=== PATIENT | female | born 1965 | race Caucasian/White ===

== ENCOUNTER 2016-10-20 19:29 | Emergency (ER) | payer MEDICAID ==
[~2016-10-20] VITALS: Ht 165.1 cm; Wt 75.0 kg
[~2016-10-20 19:29] MED LIST: CEPH500C PO; GABA600T PO; HYDR-3516 PO; LISI10TA3 PO; MORP1CAP82 PO; OMEP20TA PO
[2016-10-20] MEDS ORDERED: LORazepam 2 MG/ML VIAL IV PUSH ONE (19:45)
--- NOTE | 2016-10-20 19:46 | PD ---
HPI Chief Complaint: closed head injury Time Seen by Provider: 19:34 Travel History International Travel<30 days: No Contact w/Intl Traveler<30days: No History of Present Illness HPI This is a 51-year-old female who presents to the emergency department having reportedly had a fall from standing hitting her head. Patient was drinking alcohol. Patient is unable to provide any history but did awaken and talk to EMS briefly. She does have a history of anxiety. History is very limited as the patient is not appropriately responding to questions. PFSH Past Medical History Hx Anticoagulant Therapy: No Cardiovascular Problems: No Chemotherapy: No Cerebrovascular Accident: No Diabetes: No Respiratory: No Social History Alcohol Use: Yes Tobacco Use: Yes Substance Use: No Allergies-Medications (Allergen,Severity, Reaction): Coded Allergies: No Known Allergies (Unverified , 10/20/16) Reported Meds & Prescriptions Reported Meds & Active Scripts Active Reported Embeda (Morphine-Naltrexone ER) 60-2.4 Mg Caper 1 Cap PO BID Hydrocodone-Acetaminophen 5-325 mg Tab 1 Tab PO Q6H PRN Gabapentin 600 Mg Tab 600 Mg PO BID Omeprazole 20 Mg Tab 20 Mg PO DAILY Lisinopril 10 Mg Tab 10 Mg PO DAILY Review of Systems ROS Limitations: Intoxication Physical Exam Narrative GENERAL: Disheveled SKIN: Warm and dry. HEAD: Atraumatic. Normocephalic. EYES: Pupils equal and round. No injection or drainage. ENT: Moist mucous membranes NECK: Trachea midline. Cervical collar in place. CARDIOVASCULAR: Regular rate and rhythm. No murmur appreciated. RESPIRATORY: Hyperventilating GASTROINTESTINAL: Abdomen soft, non-tender, nondistended. MUSCULOSKELETAL: No obvious deformities. NEUROLOGICAL: Awake and alert. No obvious cranial nerve deficits. Moving all extremities. PSYCHIATRIC: Tearful, not answering questions appropriately Data Data Last Documented VS Vital Signs Date Time Temp Pulse Resp B/P Pulse Ox O2 Delivery O2 Flow Rate FiO2 10/20/16 19:59 98.9 98 22 134/[address] Brain W/O Iv Contrast(Rout) (10/20/16 ) Ct Cerv Spine W/O Contrast (10/20/16 ) ^ Insert Iv (10/20/16 19:44) Alcohol (Ethanol) (10/20/16 19:44) Complete Blood Count With Diff (10/20/16 19:44) Basic Metabolic Panel (Bmp) (10/20/16 19:44) Lorazepam Inj (Ativan Inj) (10/20/16 19:45) Potassium Chloride (Kcl) (10/20/16 21:30) Labs Laboratory Tests Test 10/20/16 20:33 White Blood Count 8.4 TH/MM3 Red Blood Count 4.63 MIL/MM3 Hemoglobin 15.2 GM/DL Hematocrit 44.2 % Mean Corpuscular Volume 95.5 FL Mean Corpuscular Hemoglobin 32.9 PG Mean Corpuscular Hemoglobin 34.4 % Concent Red Cell Distribution Width 12.6 % Platelet Count 248 TH/MM3 Mean Platelet Volume 7.8 FL Neutrophils (%) (Auto) 41.7 % Lymphocytes (%) (Auto) 47.7 % Monocytes (%) (Auto) 6.7 % Eosinophils (%) (Auto) 3.1 % Basophils (%) (Auto) 0.8 % Neutrophils # (Auto) 3.5 TH/MM3 Lymphocytes # (Auto) 4.0 TH/MM3 Monocytes # (Auto) 0.6 TH/MM3 Eosinophils # (Auto) 0.3 TH/MM3 Basophils # (Auto) 0.1 TH/MM3 CBC Comment DIFF FINAL Differential Comment Sodium Level 146 MEQ/L Potassium Level 3.0 MEQ/L Chloride Level 112 MEQ/L Carbon Dioxide Level 20.1 MEQ/L Anion Gap 14 MEQ/L Blood Urea Nitrogen 6 MG/DL Creatinine 0.77 MG/DL Estimat Glomerular Filtration 78 ML/MIN Rate Random Glucose 114 MG/DL Calcium Level 8.3 MG/DL Ethyl Alcohol Level 119 MG/DL MDM Medical Decision Making Medical Screen Exam Complete: Yes Emergency Medical Condition: Yes Interpretation(s) Afebrile, tachycardic, normotensive Last [address] 10/20/16 0000 Signed Impressions: Service Date/Time: Thursday, October 20, 2016 19:53 - CONCLUSION: No acute intracranial abnormality. Francis Villalobos MD Cervical Spine CT 10/20/16 0000 Signed Impressions: Service Date/Time: Thursday, October 20, 2016 19:53 - CONCLUSION: Intact cervical spine. Francis Villalobos MD Differential Diagnosis Intracranial hemorrhage, cervical spine fracture, concussion, panic attack, alcohol intoxication Narrative Course This is a 51-year-old female who presents to the emergency department intoxicated having hit her head on a car when she fell. Patient was having a panic attack when she arrived, hyperventilating and behaving bizarrely. Now she is awake and alert reporting that she has a headache and back pain. She says she has chronic back pain and usually sees pain management for her insurance doesn't cover it anymore. I offered her Tylenol or Motrin for her back pain. Given her alcohol level was elevated I didn't think opiates were appropriate. She told me I can "keep it". She was placed on a monitor on arrival and an IV was established. Labs demonstrate an alcohol level of 119. CTs were reassuring. Patient assures me that she has a family member that can drive her home. Diagnosis Primary Impression: Acute alcohol intoxication Qualified Code: F10.120 - Acute alcohol intoxication, uncomplicated Additional Impression: Concussion Qualified Code: S06.0X9A - Concussion, with LOC of unspecified duration, initial encounter Patient Instructions: General Instructions Additional Instructions: Follow up with Isrrael Valencia in regards to psychiatric or substance related issues at: [address] [place] [address] Med/Other Pt SpecificInfo: No Change to Meds Disposition: 01 DISCHARGE HOME Condition: Stable Akila Monsivais MD Oct 20, 2016 19:46
[2016-10-20 19:59] VITALS: BP 134/90; PULSE 98; RESP 22; TEMP 98.9; O2SAT 93
--- NOTE | 2016-10-20 20:20 | RADRPT ---
EXAM DATE/TIME: 10/20/2016 19:53 [facility] COMPARISON: No previous studies available for comparison. INDICATIONS : Syncopal episode with fall. RADIATION DOSE: 37.90 CTDIvol (mGy) MEDICAL HISTORY : None SURGICAL HISTORY : None. ENCOUNTER: Initial ACUITY: 1 day PAIN SCALE: 8/10 LOCATION: cranial TECHNIQUE: Multiple contiguous axial images were obtained of the head. Using automated exposure control and adj ustment of the mA and/or kV according to patient size, radiation dose was kept as low as reasonably a chievable to obtain optimal diagnostic quality images. FINDINGS: CEREBRUM: The ventricles are normal for age. No evidence of midline shift, mass lesion, hemorrhage or acute in farction. No extra-axial fluid collections are seen. POSTERIOR FOSSA: The cerebellum and brainstem are intact. The 4th ventricle is midline. The cerebellopontine angle i s unremarkable. EXTRACRANIAL: The visualized portion of the orbits is intact. SKULL: The calvaria is intact. No evidence of skull fracture. CONCLUSION: No acute intracranial abnormality. Francis Villalobos MD on October 20, 2016 at 20:18 Board Certified Radiologist. This report was verified electronically.
[2016-10-20 20:49] LABS: AUTOMATED NEUTROPHIL # 3.5 TH/MM3 (1.8-7.7); BASOPHIL # 0.1 TH/MM3 (0-0.2); BASOPHIL % 0.8 % (0.0-2.0); EOSINOPHIL # 0.3 TH/MM3 (0-0.4); EOSINOPHIL % 3.1 % (0.0-4.0); HEMATOCRIT 44.2 % (35.0-46.0); HEMO FLAGS DIFF FINAL; LYMPH % 47.7 % (9.0-44.0); MEAN CELL VOLUME 95.5 FL (80.0-100.0); MEAN CORPUSCULAR HEMOGLOBIN 32.9 PG (27.0-34.0); MEAN CORPUSCULAR HGB CONC 34.4 % (32.0-36.0); MONO % 6.7 % (0.0-8.0); NEUT % 41.7 % (16.0-70.0); PLATELET COUNT 248 TH/MM3 (150-450); RED BLOOD COUNT 4.63 MIL/MM3 (4.00-5.30); RED CELL DISTRIBUTION WIDTH 12.6 % (11.6-17.2); WHITE BLOOD COUNT 8.4 TH/MM3 (4.0-11.0)
--- NOTE | 2016-10-20 20:52 | RADRPT ---
EXAM DATE/TIME: 10/20/2016 19:53 [facility] COMPARISON: No previous studies available for comparison. INDICATIONS : Syncopal episode with fall. RADIATION DOSE: 22.90 CTDIvol (mGy) MEDICAL HISTORY : None SURGICAL HISTORY : None. ENCOUNTER: Initial ACUITY: 1 day PAIN SCALE: 5/10 LOCATION: neck TECHNIQUE: Volumetric scanning of the cervical spine was performed. Multiplanar reconstructions in the sagittal, coronal and oblique axial planes were performed. Using automated exposure control and adjustment o f the mA and/or kV according to patient size, radiation dose was kept as low as reasonably achievable to obtain optimal diagnostic quality images. FINDINGS: VERTEBRAE: Normal vertebral body height. ALIGNMENT: No evidence of subluxation. C2-C3: The bony spinal canal is normal in size. No evidence of disc bulge or herniation. The neural forami na are bilaterally patent. C3-C4: The bony spinal canal is normal in size. No evidence of disc bulge or herniation. The neural forami na are bilaterally patent. C4-C5: The bony spinal canal is normal in size. No evidence of disc bulge or herniation. The neural forami na are bilaterally patent. C5-C6: The bony spinal canal is normal in size. No evidence of disc bulge or herniation. The neural forami na are bilaterally patent. C6-C7: The bony spinal canal is normal in size. No evidence of disc bulge or herniation. The neural forami na are bilaterally patent. C7-T1: The bony spinal canal is normal in size. No evidence of disc bulge or herniation. The neural forami na are bilaterally patent. CONCLUSION: Intact cervical spine. Francis Villalobos MD on October 20, 2016 at 20:51 Board Certified Radiologist. This report was verified electronically.
[2016-10-20 21:12] LABS: BICARBONATE 20.1 MEQ/L (21.0-32.0)
[2016-10-20] MEDS ORDERED: POTASSIUM CHLORIDE 10 MEQ CONTROLLED RELEASE TAB PO ONE (21:30)
== END 2016-10-20 21:36 | disposition home or self-care (01) ==
LOC: NEPC 19:29
DX: S06.0X9A Concussion with loss of consciousness of unspecified duration, initial encounter (principal); F10.120 Alcohol abuse with intoxication, uncomplicated; Z72.0 Tobacco use; W19.XXXA Unspecified fall, initial encounter; Y99.8 Other external cause status
CPT/HCPCS: 70450; 72125; 80048; 80307; 85025; 96374; 99284; J2060

== ENCOUNTER 2017-07-06 21:13 | Emergency (ER) | payer MEDICAID ==
[~2017-07-06] VITALS: Ht 162.6 cm; Wt 70.0 kg
[~2017-07-06 21:13] MED LIST changes: -CEPH500C PO; -OMEP20TA PO; +OMEP20TA93 PO
[2017-07-06 21:14] VITALS: BP 118/75; PULSE 116; RESP 18; TEMP 98.2; O2SAT 98
--- NOTE | 2017-07-06 21:36 | PD ---
HPI Chief Complaint: Injury Time Seen by Provider: 21:27 Travel History International Travel<30 days: No Contact w/Intl Traveler<30days: No Traveled to known affect area: No History of Present Illness HPI 52-year-old female presents to the emergency Department with complaint of right ankle pain after stepping off a curb and twisting her ankle. Reports swelling and pain to the lateral aspect. Has not been ambulatory on the affected extremity. Denies paresthesias, loss of sensation to the affected extremity. Rates pain 8/10. Describes as a throbbing sensation. Worse with movement and palpation. Has not taken any medications or tried any treatments to alleviate her symptoms. No known allergies. History of hypertension. Has no other medical complaints. Dr. Kemp is primary care provider. No other modifying factors or associated signs and symptoms. PFSH Past Medical History Medical History: Denies Significant Hx Hx Anticoagulant Therapy: No Cardiovascular Problems: No Chemotherapy: No Cerebrovascular Accident: No Diabetes: No Respiratory: No ?: Not Tubal Ligation: Yes Past Surgical History Section: Yes (X1) Other Surgery: Yes (LEFT LEG, LEFT HIP X 2, RIGHT WRIST, LEFT SHOULDER, RT KNEE ) Social History Alcohol Use: Yes (OCCASIONALLY) Tobacco Use: Yes (1 PPD) Substance Use: No Allergies-Medications (Allergen,Severity, Reaction): Coded Allergies: No Known Allergies (Unverified , 10/20/16) Reported Meds & Prescriptions Reported Meds & Active Scripts Active Reported Embeda (Morphine-Naltrexone ER) 60-2.4 Mg Caper 1 Cap PO BID Hydrocodone-Acetaminophen 5-325 mg Tab 1 Tab PO Q6H PRN Gabapentin 600 Mg Tab 600 Mg PO BID Omeprazole 20 Mg Tab 20 Mg PO DAILY Lisinopril 10 Mg Tab 10 Mg PO DAILY Review of Systems Except as stated in HPI: all other systems reviewed are Neg Physical Exam Narrative GENERAL: Well-nourished, well-developed female patient, in no acute distress SKIN: Warm and dry. HEAD: Atraumatic. Normocephalic. EYES: Pupils equal and round. No scleral icterus. No injection or drainage. ENT: Mucosa pink and moist. Airway patent. NECK: Trachea midline. CARDIOVASCULAR: Regular rate. RESPIRATORY: No accessory muscle use. GASTROINTESTINAL: Rounded. MUSCULOSKELETAL: Right ankle with point tenderness to the lateral malleolar zone with palpation; with edema and mild ecchymosis; without erythema; no obvious deformity. Right Lower extremity is supple and nontense with 2+ pedal pulse and sensory intact. No obvious deformities. No clubbing. No cyanosis. NEUROLOGICAL: Awake and alert. Oriented 3. No obvious cranial nerve deficits. Motor grossly within normal limits. Normal speech. PSYCHIATRIC: Appropriate mood and affect; insight and judgment normal. Data Data Last Documented VS Vital Signs Date Time Temp Pulse Resp B/P (MAP) Pulse Ox O2 Delivery O2 Flow Rate FiO2 07/06/17 21:25 18 07/06/17 21:14 98.2 116 118/75 (89) 98 Orders Orders Ankle, Complete ([id number]) (07/06/17 21:33) Ice/Cold Pack (07/06/17 21:33) Crutches (07/06/17 21:33) Acetamin-Hydrocod 325-5 Mg ([place] 5-325 (07/06/17 21:45) Splint Or Brace Apply/Monitor (07/06/17 22:54) MDM Medical Decision Making Medical Screen Exam Complete: Yes Emergency Medical Condition: Yes Medical Record Reviewed: Yes Differential Diagnosis Ankle sprain, ankle fracture, ankle injury Narrative Course 52-year-old female with right ankle injury. Lortab administered in the ER. Right ankle x-ray ordered. 2255: Right ankle x-ray concludes: Ankle X-Ray 07/06/172132 Signed Impressions: Service Date/Time: Thursday, July 06, 2017 21:48 - CONCLUSION: 1. Comminuted fracture of the distal right fibula. 2. Possible ligamentous injury with minimal narrowing of the medial ankle mortise. 3. Small ossific density adjacent to the tip the medial malleolus is well corticated and probably old. Reggie Mi MD Call placed to orthopedic surgeon, Dr. Knutson. 2300: Dr. Anderws assumed patient care at this time. See her note for final disposition. Diagnosis Primary Impression: Closed right ankle fracture Qualified Codes: S82.891A - Other fracture of right lower leg, initial encounter for closed fracture Liz Marcano Jul 06, 2017 21:36
[2017-07-06] MEDS ORDERED: ACETAMINOPHEN/HYDROcodone 325 MG/5 MG TAB PO ONE ×2 (21:45→23:30)
--- NOTE | 2017-07-06 22:36 | RADRPT ---
EXAM DATE/TIME: 07/06/2017 21:48 [facility] COMPARISON: No previous studies available for comparison. INDICATIONS : Pain post fall. MEDICAL HISTORY : None. SURGICAL HISTORY : None. ENCOUNTER: Initial ACUITY: 1 day PAIN SCORE: 10/10 LOCATION: Right Lateral side of ankle. FINDINGS: There are 2 oblique fractures through the distal diametaphysis of the fibula with mild medial displac ement of the interposed fragment. A there is mild lateral soft tissue swelling. The ankle mortise i s mildly asymmetric, 1 mm wider medially than laterally. There is a small corticated ossific density adjacent to the tip of the medial malleolus without associated soft tissue thickening. Small planta r calcaneal spur. No radiopaque foreign bodies. CONCLUSION: 1. Comminuted fracture of the distal right fibula. 2. Possible ligamentous injury with minimal narrowing of the medial ankle mortise. 3. Small ossific density adjacent to the tip the medial malleolus is well corticated and probably old . Reggie Mi MD on July 06, 2017 at 22:32 Board Certified Radiologist. This report was verified electronically.
[2017-07-06] MEDS ORDERED: HYDR-3516 PO (23:17)
--- NOTE | 2017-07-06 23:17 | PD ---
Physical Exam Narrative I, Dr. Marte, have reviewed the advance practice practitioner's documentation and am in agreement, met with the patient face to face, made the diagnosis, and the medical decision making was done by me. *My assessment and Findings: Patient is a 52-year-old female comes in after she stepped off a curb and injured her ankle. Exam shows tenderness to the right lateral ankle. She is able wiggle her toes. Sensation intact. Data Data Last Documented VS Vital Signs Date Time Temp Pulse Resp B/P (MAP) Pulse Ox O2 Delivery O2 Flow Rate FiO2 07/06/17 21:25 18 07/06/17 21:14 98.2 116 118/75 (89) 98 Orders Orders Ankle, Complete ([id number]) (07/06/17 21:33) Ice/Cold Pack (07/06/17 21:33) Crutches (07/06/17 21:33) Acetamin-Hydrocod 325-5 Mg ([place] 5-325 (07/06/17 21:45) Splint Or Brace Apply/Monitor (07/06/17 22:54) Fiberglass Short Leg Splint Ad (07/06/17 ) Fiberglass Sugartong Sp Ad Sl (07/06/17 ) Ed Discharge Order (07/06/17 23:10) MDM Supervised Visit with RENAE: Yes Narrative Course X-ray shows a comminuted fracture of the distal fibula with mild narrowing of the ankle mortise. I spoke with Dr. Reza of orthopedics regarding the patient. He says she can be splinted and follow-up in the office. She is advised follow-up with orthopedics. Given pain medicine. Given a prescription for pain medicine. Advised to return to the ED as needed for any worsening symptoms. Diagnosis Primary Impression: Closed right ankle fracture Qualified Codes: S82.891A - Other fracture of right lower leg, initial encounter for closed fracture Referrals: Darío Knutson Jr., MD call for appointment Patient Instructions: Ankle Fracture (ED), General Instructions Additional Instruction: Follow-up with orthopedics. Do not get to her splint wet and make sure to use the crutches and avoid putting weight on her ankle. Take pain medicine as needed. Return to the ED as needed for any worsening symptoms. Scripts Hydrocodone-Acetaminophen (Hydrocodone-Acetaminophen) 5-325 mg Tab 1 TAB PO Q6H Y for PAIN, #12 TAB 0 Refills Prov: Bharti Marte MD 07/06/17 Disposition: 01 DISCHARGE HOME Condition: Stable Bharti Marte MD Jul 06, 2017 23:17
[2017-07-06 23:36] VITALS: BP 114/74; PULSE 106; RESP 16; O2SAT 96
== END 2017-07-06 23:50 | disposition home or self-care (01) ==
LOC: NEPE 21:13
DX: S82.831A Other fracture of upper and lower end of right fibula, initial encounter for closed fracture (principal); I10 Essential (primary) hypertension; F17.200 Nicotine dependence, unspecified, uncomplicated; W10.1XXA Fall (on)(from) sidewalk curb, initial encounter; X50.1XXA Overexertion from prolonged static or awkward postures, initial encounter; Z79.899 Other long term (current) drug therapy
CPT/HCPCS: 27786; 73610; 99283; E0113